=== PATIENT | male | born 1945 | race Caucasian/White ===

== ENCOUNTER → 2020-09-09 | Day surgery (SDC) | payer MEDICARE ==
[~2020-09-09] MED LIST: ARMOUR THYROID60 MG PO; ASA 81 MG; BACITRACIN ZINC 15 GM OINT ONE; DEXAMETHASONE SOD PHOS INJ 4 MG/ML VIAL ONE; EPINEPHRINE HCL 1:1000 1ML 1 MG/ML AMP ONE; FENTANYL CITRATE/PF 100MCG/2 ML INJ ONE; FLUTICASONE; FOLIC; FOLIC ACID PO; HYDROCODONE PO; HYDROXYCHLOROQUINE PO; LIDOCAINE 2%/ EPINEPHRINE 20ML MDV ONE; LIDOCAINE HCL 2% LOCAL INJ 5 ML SDV VIAL INJ ONE; LOSARTAN POTASS50 MG PO; METHOTREXATE2.5 MG PO; MIDAZOLAM HCL 2 MG/2 ML VIAL ONE; ONDANSETRON HCL INJ 2MG/ML 2ML 2 MG/ML VIAL ONE; PROPOFOL IV EMULSION 10 MG/ML 20 ML VIAL ONE; SALMETEROL; SEVOFLURANE INHAL SOLN 250 ML PEN BTL ONE; [UNRECOGNIZED DRUG - OTHER] INJ; combivent inhaler
[2020-09-09 12:05] VITALS: BP 117/74
== END | disposition home or self-care (01) ==
LOC: OR 15:01
PROVIDERS: ATTEND Otolaryngology Otolaryngology/Facial Plastic Surgery
DX: C44.229 Squamous cell carcinoma of skin of left ear and external auricular canal (principal); L91.8 Other hypertrophic disorders of the skin; Z85.21 Personal history of malignant neoplasm of larynx; Z01.810 Encounter for preprocedural cardiovascular examination; Z01.818 Encounter for other preprocedural examination
CPT/HCPCS: 11200; 69110; 71046; 88305; 88331; 88332; 93005; J1100; J2001 ×2; J2405; J2704; J0171; J2250; J3010